=== PATIENT | female | born 1990 | race Two or more races ===

== ENCOUNTER 2020-07-21 16:22 | Emergency (ER) | payer OTHER, SELFPAY ==
[2020-07-21 16:58] VITALS: BP 98/70; PULSE 103; RESP 18; TEMP 36.7; O2SAT 99; BMI 36.0
--- NOTE | 2020-07-21 17:06 | ED.GENADULT ---
HPI - General Adult General Chief complaint: Upper Respiratory Symptoms Stated complaint: SOB Time Seen by Provider: 07/21/20 17:05 History of Present Illness HPI narrative: patient complains of fatigue body aches, runny nose, a mild feeling of shortness of breath but no shortness of breath now, no cough no sputum, she does have a COVID exposure from a family member Related Data Allergies Allergy/AdvReac Type Severity Reaction Status Date / Time No Known Allergies Allergy Verified 07/21/20 16:58 Review of Systems Review of Systems: positive for body aches foot T good, mild shortness of breath Negative no fever no chills no dizziness no weakness no chest pain no cough no sputum no abdominal pain no nausea no vomiting no diarrhea no rash, no headache, no sore throat Yes all other systems are reviewed and are negative PMFSH Past Medical History PMFSH Narrative: patient is 2 months with an infant that tested positive for COVID but luckily is doing well Source: nursing notes reviewed Medical History (Updated 07/21/20 @ 17:08 by ANUSHA Brown) Healthy adult Social History Social History Advance Directives: No Advance Directives Information Provided: No Physical Exam Vital Signs: Vital Signs: Last Vital Signs Temp 98.1 F 07/21/20 16:58 Pulse 103 H 07/21/20 16:58 Resp 18 07/21/20 16:58 BP 98/70 07/21/20 16:58 Pulse Ox 99 07/21/20 16:58 Body Mass Index 36.0 general appearance comfortable relax cooperative speaking full sentences no acute distress No sinus tenderness, the voice is normal The neck is supple The chest is clear to auscultation bilaterally with full symmetrical equal breath sounds Heart no murmur The abdomen soft nontender Extremities no calf tenderness or swelling Skin no rash Neuro no focal deficit Course Course Course Narrative: well-appearing patient is tested for COVID and discharge Discharge Plan Discharge Clinical Impression: Acute viral syndrome Patient Disposition: Home, Self-Care Additional Instructions: we will call you with COVID test results , return to ER any time for any worse condition or any concerns, where mask and protect older relatives from possible infection, negative test does not rule out COVID so if your symptomatic use care with others
== END 2020-07-21 17:53 | disposition home or self-care (01) ==
PROVIDERS: Physician Assistant Medical; Emergency Provider Emergency Medicine Emergency Medical Services; PCP Internal Medicine
DX: B34.9 Viral infection, unspecified (principal); Z20.828 Contact with and (suspected) exposure to other viral communicable diseases; R06.02 Shortness of breath
CPT/HCPCS: 99283; U0003

== ENCOUNTER 2021-01-11 13:53 | Emergency (ER) | payer OTHER, SELFPAY ==
--- NOTE | ~2021-01-11 | US_ITS ---
EXAMINATION: PELVIC ULTRASOUND CLINICAL INFORMATION: Positive test with left lower quadrant pain. Status post tummy tuck with liposuction on 12/27/2020, with question of hematoma or abscess COMPARISON: CT abdomen pelvis 06/03/2014 TECHNIQUE: Both transabdominal and endovaginal ultrasound was performed. FINDINGS: An anteverted uterus is present. No gestational sac is seen. Endometrium measures 1.7 cm in thickness. No fluid is seen in the endometrial canal. Right ovary measures 3.5 x 2.2 x 2.3 cm and contains a hypoechoic mass measuring 0.9 x 0.6 x 1.1 cm, possibly a dermoid. This was not seen with certainty at the time of the prior CT scan. Left ovary was not seen. No free fluid is present in the cul-de-sac In the region of the patient's prior surgery, an abnormal fluid collection, hematoma or abscess is not seen. US/US pelvic limited IMPRESSION: No evidence of a intrauterine . The patient is , correlation with hCG level is recommended with follow-up ultrasound if indicated. No ultrasonic evidence of complication from the patient's surgery.
--- NOTE | ~2021-01-11 | US_ITS ---
EXAMINATION: PELVIC ULTRASOUND CLINICAL INFORMATION: Positive test with left lower quadrant pain. Status post tummy tuck with liposuction on 12/27/2020, with question of hematoma or abscess COMPARISON: CT abdomen pelvis 06/03/2014 TECHNIQUE: Both transabdominal and endovaginal ultrasound was performed. FINDINGS: An anteverted uterus is present. No gestational sac is seen. Endometrium measures 1.7 cm in thickness. No fluid is seen in the endometrial canal. Right ovary measures 3.5 x 2.2 x 2.3 cm and contains a hypoechoic mass measuring 0.9 x 0.6 x 1.1 cm, possibly a dermoid. This was not seen with certainty at the time of the prior CT scan. Left ovary was not seen. No free fluid is present in the cul-de-sac In the region of the patient's prior surgery, an abnormal fluid collection, hematoma or abscess is not seen. US/US OB <= 14 weeks fetus IMPRESSION: No evidence of a intrauterine . The patient is , correlation with hCG level is recommended with follow-up ultrasound if indicated. No ultrasonic evidence of complication from the patient's surgery.
[2021-01-11 14:31] VITALS: BP 129/64; PULSE 101; RESP 18; TEMP 36.8; O2SAT 98; BMI 32.5
[2021-01-11 16:34] VITALS: RESP 18
[2021-01-11 17:05] LABS: MANUAL DIFF FLAG NO
[2021-01-11 17:07] LABS: Basophils Percent Auto 0.1 % (0-2); Eosinophils Absolute Auto 0.2 X10*3/uL (0.0-0.4); Eosinophils Percent Auto 3.4 % (0-4); Imm Gran Abs Auto 0.02 X10*3/uL (0.00-0.03); Imm Gran Pct Auto 0.3 % (0.0-0.4); Lymphocytes Absolute Auto 1.8 X10*3/uL (1.2-4.9); Lymphocytes Percent Auto 26.5 % (20-40); Mean Corpuscular HGB Conc 30.8 g/dl (31.0-35.0); Mean Corpuscular Hemoglobin 25.9 pg (27.0-33.0); Mean Corpuscular Volume 84.1 fL (80-98); Mean Platelet Volume 8.4 fL (9.4-12.3); Monocytes Absolute Auto 0.7 X10*3/uL (0.1-1.2); Monocytes Percent Auto 9.8 % (2-11); Neutrophils Percent Auto 59.9 % (45-73); Platelet Count 566 X10*3/uL (160-400); Red Blood Count 3.09 X10*6/uL (4.20-5.50); Red Cell Distribution Width 17.7 % (11.0-16.0); White Blood Count 6.7 X10*3/uL (4.8-10.8)
--- NOTE | 2021-01-11 17:26 | ED.ABDPAIN ---
HPI - Abdominal Pain General Chief Complaint: Abdominal Pain Stated Complaint: left side abd pain Time Seen by Provider: 01/11/21 16:37 Source: patient Mode of arrival: ambulatory History of Present Illness HPI narrative: 30-year-old female with a past medical history of timing tuck, liposuction, & BBL on 12/27/2020 in [place] presenting to the ED complaining of LLQ abdominal pain since 4 days after procedure. Admits pain is persistent and worsening. Also reports surgeon removed her lap band. Admits to burning. Denies nausea/vomiting, diarrhea/constipation, fever, chills, dysuria/hematuria MD elicited complaint: abdominal pain Related Data Allergies Allergy/AdvReac Type Severity Reaction Status Date / Time No Known Allergies Allergy Verified 01/11/21 14:31 Review of Systems Review of Systems Constitutional: No Fever, No Chills Cardiovascular: No Chest Pain, No SOB Respiratory: No Cough, No Dyspnea Gastrointestinal: No Nausea, No Vomiting, No Diarrhea, No Constipation, +Abdominal pain Genitourinary: No Dysuria, No Urinary Frequency, No Hematuria, No Flank Pain Musculoskeletal: No joint pain, No Myalgias, No Joint Swelling Skin: No Skin Lesions, No rash Neuro: No Weakness, No Numbness, No Headache Yes all other systems are reviewed and are negative Physical Exam Vital Signs: Vital Signs: Last Vital Signs Temp 98.3 F 01/11/21 14:31 Pulse 101 H 01/11/21 14:31 Resp 18 01/11/21 16:34 BP 129/64 01/11/21 14:31 Pulse Ox 98 01/11/21 14:31 Body Mass Index 32.5 Const: General: cooperative and healthy appearing Orientation/consciousness: patient oriented x3 Limitations: no limitations HENMT: Head: Yes normal to inspection Ears: hearing grossly normal bilaterally General nose exam: Normal external nose present Face and sinus: Yes normal facial exam Eyes: General: appearance normal, both eyes and all related structures EOM: EOMs intact bilaterally Neck: Neck: Yes normal visual inspection Resp: Effort & Inspection: normal respiratory effort Cardio: Rate: regular rate GI: Other: Surgical scars noted to abdomen with proper healing and ecchymosis. No drainage or dehiscence. No fluctuance/induration Inspection: Yes normal to inspection Palpation (GI): Soft to palpation, Tenderness to palpation present (GI) in the LLQ, no guarding and not rigid : General: Yes no CVA tenderness Back/Spine/Pelvis: Back: no CVA tenderness Skin: Rashes: no rashes Wounds: no wounds Neuro: General: patient oriented x3 Gait exam (Neuro): Normal gait present Extrem: General: Yes normal to inspection Course Course Course Narrative: -no leukocytosis, H&H 04/11 likely postsurgical -1809--UA negative, urine positive. Discussed with patient, LMP 12/09, admits had negative test prior to surgery. CT scan cancel, now concern for ectopic . Beta quant added will obtain OB ultrasound and limited pelvic ultrasound to eval for hematoma -1829--ED care transferred to [place] [facility] pending remaining labs and ultrasound MDM - Abdominal Pain MDM Narrative Medical decision making narrative: 30-year-old female with a past medical history of timing tuck, liposuction, & BBL on 12/27/2020 in [place] presenting to the ED complaining of LLQ abdominal pain since 4 days after procedure. On exam initially tachycardic to 101, NAD/nontoxic, abdomen soft with LLQ ttp, no rebound or guarding. Concern for postsurgical hematoma or abscess vs diverticulitis. Lower concern for appendicitis/UTI Plan: Labs, UA, CT AP, reassess Medical Records Attestation: I reviewed the patient's medical records. Lab Data Attestation: I reviewed the patient's lab results. Result diagrams: 01/11/21 16:59 01/11/21 16:59 Labs: Lab Results 01/11/21 01/11/21 01/11/21 Range/Units 16:59 16:59 16:59 WBC 6.7 (4.8-10.8) X10*3/uL RBC 3.09 L (4.20-5.50) X10*6/uL Hgb 8.0 L (12.0-16.0) g/dl Hct 26.0 L (37-47) % MCV 84.1 (80-98) fL MCH 25.9 L (27.0-33.0) pg MCHC 30.8 L (31.0-35.0) g/dl RDW 17.7 H (11.0-16.0) % Plt Count 566 H (160-400) X10*3/uL MPV 8.4 L (9.4-12.3) fL Immature Gran % (Auto) 0.3 (0.0-0.4) % Neut % (Auto) 59.9 (45-73) % Lymph % (Auto) 26.5 (20-40) % [place] % (Auto) 9.8 (2-11) % Eos % (Auto) 3.4 (0-4) % Baso % (Auto) 0.1 (0-2) % Lymph # (Auto) 1.8 (1.2-4.9) X10*3/uL [place] # (Auto) 0.7 (0.1-1.2) X10*3/uL Eos # (Auto) 0.2 (0.0-0.4) X10*3/uL Baso # (Auto) 0.0 (0.0-0.2) X10*3/uL Abs Immat Gran (auto) 0.02 (0.00-0.03) X10*3/uL Absolute Neuts (auto) 4.0 (2.0-8.3) X10*3/uL Absolute Nucleated RBC 0.000 (0.0-0.012) X10*3/uL Nucleated RBC % (auto) 0.0 (0.0-0.2) /100WBC Hold Blue Top SEE NOTE Sodium 138 (135-145) mmol/L Potassium 4.2 (3.3-5.1) mmol/L Chloride 105 (96-108) mmol/L Carbon Dioxide 23 (22-29) mmol/L Anion Gap 14 (12-20) BUN 12 (9-16) mg/dL Creatinine 0.61 (0.5-1.4) mg/dL Estim Creat Clear Calc 135.5 Estimated GFR > 60 Random Glucose 88 (60-115) mg/dL Calcium 9.0 (8.4-10.2) mg/dL Magnesium (1.6-2.6) mg/dL Total Bilirubin 0.3 (0.0-1.0) mg/dL AST 16 (5-31) U/L ALT 14 (0-31) U/L Alkaline Phosphatase 52 (39-117) U/L Total Protein 7.0 (6.5-8.0) g/dL Albumin 4.1 (3.5-5.0) g/dL Lipase (8-78) U/L Urine Color Urine Appearance Urine pH (5.0-8.0) Ur Specific [place] (1.005-1.025) Urine Protein (NEG-TRACE) MG/DL Urine Glucose (UA) (NEG) MG/DL Urine Ketones (NEG) MG/DL Urine Blood (NEG) Urine Nitrite (NEG) Ur Leukocyte Esterase (NEG) Urine Test (NEGATIVE) 01/11/21 01/11/21 01/11/21 Range/Units 17:13 17:13 17:25 WBC (4.8-10.8) X10*3/uL RBC (4.20-5.50) X10*6/uL Hgb (12.0-16.0) g/dl Hct (37-47) % MCV (80-98) fL MCH (27.0-33.0) pg MCHC (31.0-35.0) g/dl RDW (11.0-16.0) % Plt Count (160-400) X10*3/uL MPV (9.4-12.3) fL Immature Gran % (Auto) (0.0-0.4) % Neut % (Auto) (45-73) % Lymph % (Auto) (20-40) % [place] % (Auto) (2-11) % Eos % (Auto) (0-4) % Baso % (Auto) (0-2) % Lymph # (Auto) (1.2-4.9) X10*3/uL [place] # (Auto) (0.1-1.2) X10*3/uL Eos # (Auto) (0.0-0.4) X10*3/uL Baso # (Auto) (0.0-0.2) X10*3/uL Abs Immat Gran (auto) (0.00-0.03) X10*3/uL Absolute Neuts (auto) (2.0-8.3) X10*3/uL Absolute Nucleated RBC (0.0-0.012) X10*3/uL Nucleated RBC % (auto) (0.0-0.2) /100WBC Hold Blue Top Sodium (135-145) mmol/L Potassium (3.3-5.1) mmol/L Chloride (96-108) mmol/L Carbon Dioxide (22-29) mmol/L Anion Gap (12-20) BUN (9-16) mg/dL Creatinine (0.5-1.4) mg/dL Estim Creat Clear Calc Estimated GFR Random Glucose (60-115) mg/dL Calcium (8.4-10.2) mg/dL Magnesium (1.6-2.6) mg/dL Total Bilirubin (0.0-1.0) mg/dL AST (5-31) U/L ALT (0-31) U/L Alkaline Phosphatase (39-117) U/L Total Protein (6.5-8.0) g/dL Albumin (3.5-5.0) g/dL Lipase 33 (8-78) U/L Urine Color YELLOW Urine Appearance HAZY Urine pH 6.0 (5.0-8.0) Ur Specific [place] 1.020 (1.005-1.025) Urine Protein NEG (NEG-TRACE) MG/DL Urine Glucose (UA) NEG (NEG) MG/DL Urine Ketones NEG (NEG) MG/DL Urine Blood NEG (NEG) Urine Nitrite NEG (NEG) Ur Leukocyte Esterase NEG (NEG) Urine Test POSITIVE H (NEGATIVE) 01/11/21 Range/Units 17:25 WBC (4.8-10.8) X10*3/uL RBC (4.20-5.50) X10*6/uL Hgb (12.0-16.0) g/dl Hct (37-47) % MCV (80-98) fL MCH (27.0-33.0) pg MCHC (31.0-35.0) g/dl RDW (11.0-16.0) % Plt Count (160-400) X10*3/uL MPV (9.4-12.3) fL Immature Gran % (Auto) (0.0-0.4) % Neut % (Auto) (45-73) % Lymph % (Auto) (20-40) % [place] % (Auto) (2-11) % Eos % (Auto) (0-4) % Baso % (Auto) (0-2) % Lymph # (Auto) (1.2-4.9) X10*3/uL [place] # (Auto) (0.1-1.2) X10*3/uL Eos # (Auto) (0.0-0.4) X10*3/uL Baso # (Auto) (0.0-0.2) X10*3/uL Abs Immat Gran (auto) (0.00-0.03) X10*3/uL Absolute Neuts (auto) (2.0-8.3) X10*3/uL Absolute Nucleated RBC (0.0-0.012) X10*3/uL Nucleated RBC % (auto) (0.0-0.2) /100WBC Hold Blue Top Sodium (135-145) mmol/L Potassium (3.3-5.1) mmol/L Chloride (96-108) mmol/L Carbon Dioxide (22-29) mmol/L Anion Gap (12-20) BUN (9-16) mg/dL Creatinine (0.5-1.4) mg/dL Estim Creat Clear Calc Estimated GFR Random Glucose (60-115) mg/dL Calcium (8.4-10.2) mg/dL Magnesium 2.1 (1.6-2.6) mg/dL Total Bilirubin (0.0-1.0) mg/dL AST (5-31) U/L ALT (0-31) U/L Alkaline Phosphatase (39-117) U/L Total Protein (6.5-8.0) g/dL Albumin (3.5-5.0) g/dL Lipase (8-78) U/L Urine Color Urine Appearance Urine pH (5.0-8.0) Ur Specific [place] (1.005-1.025) Urine Protein (NEG-TRACE) MG/DL Urine Glucose (UA) (NEG) MG/DL Urine Ketones (NEG) MG/DL Urine Blood (NEG) Urine Nitrite (NEG) Ur Leukocyte Esterase (NEG) Urine Test (NEGATIVE) [facility] Past Medical History Attestation statement: The following information was validated with the patient. Medical History Healthy adult Surgical History (Updated 01/11/21 @ 14:33 by Marycruz Thao) H/O abdominoplasty Social History Social History Advance Directives: No Advance Directives Information Provided: Yes
[2021-01-11] MEDS: 0.9 % Sodium Chloride 1,000 ML 999 ML IVCONT (17:27)
[2021-01-11] MEDS: Ketorolac Tromethamine 15 MG/ML VIAL IVPUSH (17:35)
[2021-01-11 17:41] LABS: Alanine Aminotransferase 14 U/L (0-31); Albumin Level 4.1 g/dL (3.5-5.0); Alkaline Phosphatase 52 U/L (39-117); Anion Gap 14 (12-20); Aspartate Amino Transferase 16 U/L (5-31); Bilirubin Total 0.3 mg/dL (0.0-1.0); Blood Urea Nitrogen 12 mg/dL (9-16); Carbon Dioxide 23 mmol/L (22-29); Chloride 105 mmol/L (96-108); Creatinine Clr Calc Pharmacy 135.5; Estimated Glomerular Filt Rate > 60; Glucose Random 88 mg/dL (60-115); Potassium 4.2 mmol/L (3.3-5.1); Sodium 138 mmol/L (135-145)
[2021-01-11 17:47] LABS: Glucose Urine UA NEG (NEG); Leukocyte Esterase Urine NEG (NEG); Nitrite Urine NEG (NEG); Urine Blood NEG (NEG); Urine Ketones NEG (NEG); Urine Protein NEG (NEG-TRACE)
[2021-01-11 17:48] LABS: UPreg QC Valid YES; Urine Pregnancy POSITIVE (NEGATIVE)
[2021-01-11 17:49] LABS: Appearance Urine HAZY; Color Urine YELLOW
[2021-01-11 18:04] LABS: Magnesium 2.1 mg/dL (1.6-2.6)
[2021-01-11 18:07] LABS: Lipase 33 U/L (8-78)
[2021-01-11 18:23] LABS: HCG Quantitative 574 mIU/mL
== END 2021-01-11 21:59 | disposition home or self-care (01) ==
PROVIDERS: Physician Assistant; Emergency Provider Internal Medicine; PCP Internal Medicine
DX: R10.32 Left lower quadrant pain (principal); R00.0 Tachycardia, unspecified; Z33.1 Pregnant state, incidental; Z98.890 Other specified postprocedural states
CPT/HCPCS: 36415; 76801; 76857; 80053; 81003; 81025; 83690; 83735; 84702; 85025; 96361; 96374; 99284; J1885

== ENCOUNTER 2021-06-13 15:26 | Outpatient (REF) | payer OTHER, SELFPAY | END 2021-06-13 15:27 | disposition home or self-care (01) | LOC: HO.LAB 15:26 | PROVIDERS: Visit Provider Internal Medicine | DX: Z20.822 Contact with and (suspected) exposure to COVID-19 (principal) | CPT/HCPCS: C9803; U0003; U0005 ==

== ENCOUNTER 2021-06-18 11:29 | Outpatient (REF) | payer OTHER, SELFPAY | END 2021-06-18 11:30 | disposition home or self-care (01) | LOC: HO.LAB 11:29 | PROVIDERS: Visit Provider Internal Medicine | DX: Z20.822 Contact with and (suspected) exposure to COVID-19 (principal) | CPT/HCPCS: C9803; U0003; U0005 ==

== ENCOUNTER 2022-08-24 06:58 | Emergency (ER) | payer OTHER, SELFPAY ==
--- NOTE | ~2022-08-24 | XR_ITS ---
EXAMINATION: XR CHEST CLINICAL INFORMATION: Cough COMPARISON: Chest x-ray March 22, 2018 TECHNIQUE: Frontal view of the chest was obtained. FINDINGS: Cardiac silhouette is normal in size. The lungs are well aerated. There is no lobar consolidation. No pleural effusion or pneumothorax. Partially visualized gastric band. XR/XR chest 1V IMPRESSION: No acute pulmonary pathology.
[2022-08-24 07:18] VITALS: BP 95/66; PULSE 82; RESP 16; TEMP 36.6; O2SAT 100; BMI 31.7
[2022-08-24 08:00] VITALS: RESP 16
--- NOTE | 2022-08-24 09:22 | ED_ITS ---
HPI - URI/Sore Throat General Chief Complaint: Upper Respiratory Symptoms Stated Complaint: fever, CP, hard to breathe Time Seen by Provider: 08/24/22 09:07 Source: patient Mode of arrival: ambulatory History of Present Illness HPI Narrative: 31-year-old female with a past medical history of recent COVID-19 and influenza last week presenting to the ED complaining of continued nonproductive cough, fever T-max 100.4 degrees last night and SOB. Admits to taking Motrin this morning. Reports chest discomfort with cough. Denies chills, abdominal pain, decreased p.o. intake, recent travel, pedal edema MD elicited complaint: fever, cough, rhinorrhea and nasal congestion Onset (ago): day(s) Related Data Previous Rx's Medication Instructions Recorded benzonatate 100 mg capsule 100 mg PO TID PRN cough #14 caps 08/24/22 fluticasone propionate 50 2 spray intranasal DAILY #16 grams 08/24/22 mcg/actuation nasal spray,suspension (Flonase Allergy Relief) prednisone 20 mg tablet 40 mg PO DAILY 5 days #10 tabs 08/24/22 Allergies Allergy/AdvReac Type Severity Reaction Status Date / Time No Known Allergies Allergy Verified 01/11/21 14:31 Review of Systems Review of Systems: Constitutional: + Fever, No Chills ENT/Mouth: No Ear Pain, + Nasal Congestion, No Sinus Pain, No Hoarseness, No sore throat, + Rhinorrhea, No Swallowing Difficulty Cardiovascular: No Chest Pain, + SOB Respiratory: + Cough, No Sputum, No Wheezing Gastrointestinal: No Nausea, No Vomiting, No Diarrhea, No Constipation, No Abdominal pain Genitourinary: No Dysuria, No Urinary Frequency, No Hematuria, No Flank Pain Musculoskeletal: No joint pain, No Myalgias, No Joint Swelling Skin: No Skin Lesions, No rash Neuro: No Weakness Yes all other systems are reviewed and are negative Constitutional: Constitutional: Reports as per [facility] Past Medical History Attestation statement: The following information was validated with the patient. Medical History Healthy adult Surgical History H/O abdominoplasty Social History Social History Advance Directives: No Advance Directives Information Provided: No Physical Exam Vital Signs: Vital Signs: Last Vital Signs Temp 98 F 08/24/22 07:18 Pulse 82 08/24/22 07:18 Resp 16 08/24/22 08:00 BP 95/66 08/24/22 07:18 Pulse Ox 100 08/24/22 07:18 O2 Del Method 08/24/22 07:18 BMI result Body Mass Index 31.7 Const: General: cooperative, healthy appearing, comfortable and no acute distress Orientation/consciousness: patient oriented x3 Limitations: no limitations HEENT: Head: Yes normal to inspection and Yes atraumatic Ears: hearing grossly normal bilaterally General nose exam: Normal external nose present Face and sinus: Yes normal facial exam Throat: Yes posterior oropharynx normal, Yes tonsils normal, Yes uvula midline, No peritonsillar mass and No uvula laterally displaced Eyes: General: appearance normal, both eyes and all related structures EOM: EOMs intact bilaterally Neck: Neck: Yes normal visual inspection and Yes no meningeal signs Resp: Effort & Inspection: normal respiratory effort and no respiratory distress Auscultation: clear to auscultation bilaterally, no crackles, no rales and no rhonchi Cardio: Rate: regular rate Heart sounds: S1 normal heart sound present and S2 normal heart sound present Skin: Rashes: no rashes Wounds: no wounds Neuro: General: patient oriented x3, tone normal and no meningeal signs Gait exam (Neuro): Normal gait present Extrem: General: Yes normal to inspection Course Course Course Narrative: 928-- chest x-ray unremarkable. Patient has applied with inhaler in the emergency department. Will discharge with p.o. prednisone and close PCP follow- up Results discussed with patient including worrisome signs and symptoms and strict return precautions, and when to return to the emergency department. They verbalized understanding and feel safe for discharge at this time. Medications Administered Discontinued Medications Generic Name Dose Route Start Last Admin Trade Name Freq PRN Reason Stop Dose Admin Albuterol Sulfate 4 puff 08/24/22 09:18 08/24/22 09:32 Albuterol Sulfate 90 Mcg 8 Gm Inhaler INHALE 08/24/22 09:19 4 puff ONCE ONE Administration Benzonatate 100 mg 08/24/22 09:18 08/24/22 09:33 Benzonatate 100 Mg Capsule PO 08/24/22 09:19 100 mg ONCE ONE Administration Hydrocodone Bit/Homatropine Methylb 5 ml 08/24/22 09:18 08/24/22 09:33 Hydrocodone/Homat 5/1.5/5 Ml 5 Ml Syrup PO 08/24/22 09:19 5 ml ONCE ONE Administration Medical Decision Making Medical Decision Making MDM Narrative: 31-year-old female with a past medical history of recent COVID-19 and influenza last week presenting to the ED complaining of continued nonproductive cough, fever T-max 100.4 degrees last night and SOB. on exam vital signs stable, NAD, nontoxic appearing, lungs CTA, no pedal edema. Concern for continued viral illness vs bronchitis. rule out pneumonia. Low suspicion for ACS/ PE Plan: CXR, albuterol inhaler Please refer to course for remaining clinical decision making, interpretation of labs/imaging results, and discussions with consultants and/or family members. Differential Diagnosis Differential Diagnoses: The differential diagnosis associated with the presentation includes as above Discharge Plan Discharge Clinical Impression: Bronchitis Patient Disposition: Home, Self-Care Instructions: Acute Bronchitis (ED) Additional Instructions: your x-ray is unremarkable. Tessalon Perles for cough place take as needed. Prednisone as a steroid. Use albuterol inhaler at home for shortness of breath /wheezing if symptoms persist or worsen, constant worsening shortness breath or chest pain return to the emergency department Prescriptions: New prednisone 20 mg tablet 40 mg PO DAILY 5 Days Qty: 10 0RF benzonatate 100 mg capsule 100 mg PO TID PRN (Reason: cough) Qty: 14 0RF fluticasone propionate [Flonase Allergy Relief] 50 mcg/actuation spray,suspension 2 spray intranasal DAILY Qty: 16 0RF Rx Instructions: administer into each nostril Referrals: Physician,Unknown J [Primary Care Provider] - 5 days Stand Alone Forms: Work/School Release Interventions: ED Discharge Assessment Last Done: 08/24/22 09:40 Discharge Date/Time: 08/24/22 09:41
[2022-08-24] MEDS: Albuterol Sulfate 90 MCG 8 GM INHALER 4 PUFF INHALE (09:32)
[2022-08-24] MEDS: Benzonatate 100 MG CAPSULE PO (09:33)
[2022-08-24] MEDS: HYDROcodone/Homat 5/1.5/5 ML 5 ML SYRUP PO (09:33)
== END 2022-08-24 09:41 | disposition home or self-care (01) ==
PROVIDERS: Emergency Provider Emergency Medicine Emergency Medical Services
DX: J40 Bronchitis, not specified as acute or chronic (principal); R05.9 Cough, unspecified; R07.89 Other chest pain; R06.02 Shortness of breath; Z79.899 Other long term (current) drug therapy
CPT/HCPCS: 71045; 99284

== ENCOUNTER 2024-05-31 10:23 | Emergency (ER) | payer OTHER, SELFPAY ==
--- NOTE | ~2024-05-31 | US_ITS ---
EXAMINATION: US TRIPLEX LOWER EXTREMITY, RIGHT CLINICAL INFORMATION: Right lower extremity swelling and pain COMPARISON: None available. TECHNIQUE: Color-flow triplex imaging with spectral analysis and compression Doppler were performed on the right lower extremity. FINDINGS: Respiratory variation, normal compression and augmented flow are noted throughout the right lower extremity. The visualized common femoral vein, superficial femoral vein, profunda femoral vein, popliteal vein and midcalf peroneal and posterior tibial venous segments show no evidence of deep venous thrombosis. There is no Vitale's cyst. US/US venous duplex LE RT IMPRESSION: No evidence of deep venous thrombosis involving the right lower extremity. Electronically signed by: Joss Alfonso MD 05/31/2024 12:04 PM EDT RP
[2024-05-31 10:43] VITALS: BP 117/40; PULSE 78; RESP 16; TEMP 37; O2SAT 97; BMI 39.2
--- NOTE | 2024-05-31 10:49 | ECG_ITS ---
Test Reason : palpations Blood Pressure : / mmHG Vent. Rate : 066 BPM Atrial Rate : 066 BPM P-R Int : 118 ms QRS Dur : 072 ms QT Int : 370 ms P-R-T Axes : 050 023 011 degrees QTc Int : 387 ms Normal sinus rhythm with sinus arrhythmia Low voltage QRS Borderline ECG When compared with ECG of 14-MAR-2017 11:07, No significant change was found Referred By: Generic ED Physician Electronically Signed By:RUMA JOYCE
[2024-05-31 11:06] LABS: MANUAL DIFF FLAG NO
[2024-05-31 11:07] LABS: Eosinophils Absolute Auto 0.1 X10*3/uL (0.0-0.4); Eosinophils Percent Auto 1.7 % (0-4); Hematocrit 34.9 % (37.0-47.0); Hemoglobin 11.6 g/dl (12.0-16.0); Imm Gran Abs Auto 0.02 X10*3/uL (0.00-0.03); Imm Gran Pct Auto 0.3 % (0.0-0.4); Lymphocytes Absolute Auto 1.7 X10*3/uL (1.2-4.9); Lymphocytes Percent Auto 30.1 % (20-40); Mean Corpuscular HGB Conc 33.2 g/dl (31.0-35.0); Mean Corpuscular Volume 84.1 fL (80.0-98.0); Mean Platelet Volume 8.8 fL (9.4-12.3); Monocytes Absolute Auto 0.5 X10*3/uL (0.1-1.2); Monocytes Percent Auto 8.9 % (2-11); Neutrophils Absolute Auto 3.4 x10*3/uL (2.0-8.3); Platelet Count 297 X10*3/uL (160-400); Red Blood Count 4.15 X10*6/uL (4.20-5.50); Red Cell Distribution Width 14.3 % (11.0-16.0); White Blood Count 5.7 X10*3/uL (4.8-10.8)
[2024-05-31 11:14] LABS: INTERNATIONAL NORM RATIO 1.1 (0.9-1.1); Prothrombin Time 12.7 SEC (10.9-12.4)
[2024-05-31 11:17] LABS: Partial Thromboplastin Time 31.4 SEC (26.0-36.8)
[2024-05-31 11:22] LABS: Anion Gap 10 (12-20); Blood Urea Nitrogen 12 mg/dL (9-16); Calcium 9.3 mg/dL (8.4-10.2); Carbon Dioxide 28 mmol/L (22-29); Chloride 109 mmol/L (96-108); Estimated Glomerular Filt Rate > 60; Glucose Random 81 mg/dL (60-115); Potassium 3.7 mmol/L (3.3-5.1); Sodium 143 mmol/L (135-145)
--- NOTE | 2024-05-31 13:23 | ED_ITS ---
HPI - Extremity Problem General Chief complaint: Extremity Problem Stated complaint: Pain/lump R leg Time Seen by Provider: 05/31/24 12:48 Source: patient Mode of arrival: ambulatory Limitations: no limitations History of Present Illness ED Provider: SAVANA BAUM PA-C HPI Narrative: 33 year old female with pmhx significant for anxiety presents to the ED today for acute onset right calf pain beginning last night. Reports feeling a pain in her right calf while seated, went down to feel the area and felt a small bump. She initially thought it was just a Haris-horse cramp as she does not stay very hydrated during the day. Reports seeing redness to the area which has since resolved. States the bump persisted into the morning today, prompting her to come to the ED for evaluation. Endorses pain only on palpation of the area. Reports anxiety surrounding the fact that she smokes cigarettes daily and is concerned for DVT. 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 Denies recent travel or long car rides. Denies VTE history. Denies OCP use. Admits to varicose veins in her LEs. Denies fever, chills, chest pain, sob, palpitations, hemoptysis. Related Data Previous Rx's ?Medication ?Instructions ?Recorded benzonatate 100 mg capsule 100 mg PO TID PRN cough #14 caps 08/24/22 fluticasone propionate 50 2 spray intranasal DAILY #16 grams 08/24/22 mcg/actuation nasal spray,suspension (Flonase Allergy Relief) prednisone 20 mg tablet 40 mg (2 x 20 mg) PO DAILY 5 days 08/24/22 #10 tabs Allergies Allergy/AdvReac Type Severity Reaction Status Date / Time No Known Allergies Allergy Verified 05/31/24 10:46 Review of Systems 2 Review of Systems: Yes all other systems are reviewed and are negative PMFSH Past Medical History Attestation statement: The following information was validated with the patient. Source: old records reviewed and nursing notes reviewed Medical History Healthy adult Surgical History H/O abdominoplasty Social History Social History Advance Directives: No Advance Directives Information Provided: Yes Physical Exam 2 Vital Signs: Vital Signs: Last Vital Signs Temp 97.6 F 05/31/24 15:57 Pulse 58 05/31/24 15:57 Resp 18 05/31/24 15:57 BP 104/54 L 05/31/24 15:57 Pulse Ox 98 05/31/24 15:57 O2 Del Method Room Air 05/31/24 15:57 BMI result Body Mass Index 39.2 vital signs stable General: Well appearing, in no acute distress. Skin: Warm, dry, intact. No rashes or lesions. Head: Normocephalic, atraumatic. EENT: Hearing is intact b/l. Conjunctiva clear. PERRLA. Moist mucous membranes.? Neck: Supple without LAD? Cardiac: Chest wall symmetric. RRR Lungs: Normal respiratory effort without accessory muscle use. CTA bilaterally. Ext: Upper and lower extremities atraumatic, without tenderness, deformity, swelling or erythema. Full ROM throughout. no calf tenderness or palpable nodule/ mass. no tenderness over Achilles tendon.Pulses 2+ equal and bilateral. Neuro: AOx3. Normal speech. NV intact distally. Ambulating with steady gait. Psych: Appropriate mood and affect. Responds appropriately to questions. Course Course Course Narrative: 1556 -- CBC without leukocytosis or left shift. Chronic normocytic anemia when compared to priors. H&H stable and above transfusion threshold. Chemistry without acute electrolyte abnormality requiring intervention. No GREGORY. Venous duplex of right lower extremity pending. Patient states that she can no longer wait for her results as she has to pick her children up. discussed risks of leaving the ED without awaiting ultrasound results including but not limited to worsening pain, stroke, and even . patient verbalizes understanding and is agreeable to leave the ED against medical advice. Medical Decision Making Medical Decision Making MDM Narrative: 33 year old female with pmhx significant for anxiety presents to the ED today for acute onset right calf pain beginning last night. Vital signs stable. not hypoxic or tachycardic. she is nontoxic appearing and in nad. on exam, Upper and lower extremities atraumatic, without tenderness, deformity, swelling or erythema. Full ROM throughout. no calf tenderness or palpable nodule/ mass. no tenderness over Achilles tendon.Pulses 2+ equal and bilateral. ambulating with steady gait. Differential diagnosis includes anemia, dehydration, electrolyte abnormality, muscle cramp/ spasm, DVT, msk sprain/ strain, cyst. Plan for labs, ekg, venous duplex, re-evaluation. Patient denying pain at present. Differential Diagnosis Differential Diagnoses: The differential diagnosis associated with the presentation includes as above. Admission/Observation not indicated. Lab Data MDM Lab Attestation statement: I reviewed the patient's lab results. as above. 05/31/24 11:03 05/31/24 11:03 Labs: Lab Results 05/31/24 Range/Units 11:03 WBC 5.7 (4.8-10.8) X10*3/uL RBC 4.15 L (4.20-5.50) X10*6/uL Hgb 11.6 L (12.0-16.0) g/dl Hct 34.9 L (37.0-47.0) % MCV 84.1 (80.0-98.0) fL MCH 28.0 (27.0-33.0) pg MCHC 33.2 (31.0-35.0) g/dl RDW 14.3 (11.0-16.0) % Plt Count 297 (160-400) X10*3/uL MPV 8.8 L (9.4-12.3) fL Immature Gran % (Auto) 0.3 (0.0-0.4) % Neut % (Auto) 59.0 (45-73) % Lymph % (Auto) 30.1 (20-40) % [place] % (Auto) 8.9 (2-11) % Eos % (Auto) 1.7 (0-4) % Baso % (Auto) 0.0 (0-2) % Lymph # (Auto) 1.7 (1.2-4.9) X10*3/uL [place] # (Auto) 0.5 (0.1-1.2) X10*3/uL Eos # (Auto) 0.1 (0.0-0.4) X10*3/uL Baso # (Auto) 0.0 (0.0-0.2) X10*3/uL Abs Immat Gran (auto) 0.02 (0.00-0.03) X10*3/uL Absolute Neuts (auto) 3.4 (2.0-8.3) x10*3/uL Absolute Nucleated RBC 0.000 (0.0-0.012) X10*3/uL Nucleated RBC % (auto) 0.0 (0.0-0.2) /100WBC PT 12.7 H (10.9-12.4) SEC INR 1.1 (0.9-1.1) APTT 31.4 (26.0-36.8) SEC Sodium 143 (135-145) mmol/L Potassium 3.7 (3.3-5.1) mmol/L Chloride 109 H (96-108) mmol/L Carbon Dioxide 28 (22-29) mmol/L Anion Gap 10 L (12-20) BUN 12 (9-16) mg/dL Creatinine 0.76 (0.5-1.4) mg/dL Estim Creat Clear Calc 121.0 Estimated GFR > 60 Random Glucose 81 (60-115) mg/dL Calcium 9.3 (8.4-10.2) mg/dL External Record Review External record reviewed: Inpatient record Prescription Management I considered prescription management with: Pain Medication Social Determinants Patient?s care significantly limited by Social Determinants of Health including: Other Social Determinant of Health Critical Care Time Critical Care Time Critical Care Time: No Discharge Plan Discharge Clinical Impression: Pain of right calf Patient Disposition: Left Against Medical Advice Instructions: Leg Pain (ED) Additional Instructions: Your blood work today is reassuring. Your choosing to leave the ED today before your ultrasound is read. Return to the ED with new or worsening symptoms. In the case of an emergency call 911. Prescriptions: No Action prednisone 20 mg tablet 40 mg PO DAILY 5 Days Qty: 10 0RF benzonatate 100 mg capsule 100 mg PO TID PRN (Reason: cough) Qty: 14 0RF fluticasone propionate [Flonase Allergy Relief] 50 mcg/actuation spray,suspension 2 spray intranasal DAILY Qty: 16 0RF Rx Instructions: administer into each nostril Stand Alone Forms: Against Medical Advice Interventions: ED Discharge Assessment Last Done: 05/31/24 15:57 Discharge Date/Time: 05/31/24 15:59 Print Language: Armenian
[2024-05-31 13:53] VITALS: PULSE 77; RESP 18; O2SAT 96
[2024-05-31 15:57] VITALS: BP 104/54; PULSE 58; RESP 18; TEMP 36.4; O2SAT 98
== END 2024-05-31 15:59 | disposition left against medical advice (07) ==
PROVIDERS: Emergency Provider Emergency Medicine Emergency Medical Services
DX: M79.604 Pain in right leg (principal); R60.0 Localized edema; R00.2 Palpitations; Z79.899 Other long term (current) drug therapy
CPT/HCPCS: 36415; 80048; 85025; 85610; 85730; 93005; 93971; 99284

== ENCOUNTER → 2024-05-31 10:49 | Outpatient (BNV) | payer OTHER, SELFPAY | PROVIDERS: Emergency Provider Emergency Medicine Emergency Medical Services; Visit Provider Internal Medicine | DX: R00.2 Palpitations (principal); R94.31 Abnormal electrocardiogram [ECG] [EKG] | CPT/HCPCS: 93010 ==